=== PATIENT | male | born 1985 | race Caucasian/White ===

== ENCOUNTER 2020-06-29 22:00 | Emergency (ER) | payer OTHER ==
[~2020-06-29] VITALS: Ht 188 cm; Wt 152.0 kg
[~2020-06-29 22:00] MED LIST: ALEVE220 M1 PO; AURODEX OTIC SO10 ML OT; CABERGOLINE 0.0.5 M1 PO; CORTISPORIN EAR10 ML OT; ZYRTEC10 MG
[2020-06-29] MEDS ORDERED: CLEOCIN HCL300 MG PO (22:17)
[2020-06-29] MEDS ORDERED: HYDROCODON-ACE1 EAC8 PO (22:17)
[2020-06-29 22:31] VITALS: BP 155/72
== END 2020-06-29 22:31 | disposition home or self-care (01) ==
LOC: M.ERS 22:00
DX: K05.319 Chronic periodontitis, localized, unspecified severity (principal); J45.909 Unspecified asthma, uncomplicated; Z87.891 Personal history of nicotine dependence